=== PATIENT | male | born 1985 | race African-American/Black ===

== ENCOUNTER 2017-09-21 14:58 | Emergency (ER) | payer SELFPAY ==
[~2017-09-21] VITALS: Ht 180.3 cm; Wt 86.0 kg
[2017-09-21 18:36] VITALS: BP 125/97
== END 2017-09-21 19:13 | disposition home or self-care (01) ==
LOC: ER 16:29
DX: B35.4 Tinea corporis (principal); L23.7 Allergic contact dermatitis due to plants, except food; S01.502A Unspecified open wound of oral cavity, initial encounter; X58.XXXA Exposure to other specified factors, initial encounter; Y93.9 Activity, unspecified; Z48.02 Encounter for removal of sutures
CPT/HCPCS: 99283